=== PATIENT | female | born 1955 | race Caucasian/White ===

== ENCOUNTER → 2017-11-12 | Outpatient (CLI) | payer MEDICAID | LOC: FIMAGING 13:49 | PROVIDERS: ATTEND Family Medicine | DX: M89.38 Hypertrophy of bone, other site (principal); S33.140A Subluxation of L4/L5 lumbar vertebra, initial encounter; S33.130A Subluxation of L3/L4 lumbar vertebra, initial encounter; M25.751 Osteophyte, right hip ==